=== PATIENT | female | born 1995 | race Caucasian/White ===

== ENCOUNTER 2023-05-04 16:33 | Outpatient (RCR) | payer MEDICAID, SELFPAY ==
[2023-05-04 18:38] LABS: HCG Quantitative 84 mIU/mL
== END 2023-05-18 17:33 | disposition home or self-care (01) ==
LOC: LAB 16:33
PROVIDERS: PCP Obstetrics & Gynecology; Visit Provider Obstetrics & Gynecology
DX: N92.6 Irregular menstruation, unspecified (principal)
CPT/HCPCS: 36415; 84702

== ENCOUNTER 2023-05-11 13:12 | Outpatient (OUT) | payer MEDICAID, SELFPAY ==
[2023-05-11 14:37] LABS: HCG Quantitative 202 mIU/mL
== END 2023-05-11 13:13 | disposition home or self-care (01) ==
LOC: LAB 13:13
PROVIDERS: PCP Obstetrics & Gynecology; Visit Provider Obstetrics & Gynecology
DX: N92.5 Other specified irregular menstruation (principal)
CPT/HCPCS: 36415; 84702